=== PATIENT | female | born 1975 | race Two or more races ===

== ENCOUNTER 2025-07-20 10:59 | Outpatient (AMB) | payer OTHER, SELFPAY ==
--- NOTE | 2025-07-20 11:04 | HO.SPINEOV ---
Vital Signs 07/20/25 11:08 Height 5 ft 1 in Weight 214 lb BMI 40.4 Intake Visit Reasons: second opinion Intake Note: Ms. Caceres is here today for a second opinion on her neck issues. Certified Shorthand Reporter Required: No Allergies ibuprofen Allergy (Severe, Verified 07/20/25 11:10) Anaphylaxis Physical Exam Vital Signs: BMI result Body Mass Index 40.4 Assessment & Plan Assessment & Plan (1) Fibromyalgia: Code(s): M79.7 - Fibromyalgia Category: Medical Plan Mrs Caceres came in the office today for a 2nd opinion. She is known to your office from various injections and medication trials you done on her. She saw Dr. Luis at [place] for evaluation of multifocal pains that she has had now going on for a number of years. She describes pain in her low back that goes down her left leg that radiates up into her neck into her shoulders and both of her arms more on the left side than the right. She has had the pain now for quite some time and it does not appear to be going away. She also reports muscle aches all over her body. She gets tingling as well in multiple locations throughout the body. I believe you have done some lumbar injections on her and she reports that there was not much relief there. The injection was very painful so she is reluctant to try to consider doing more of them. She has been on gabapentin and tizanidine but it seems to be getting less helpful. She saw Dr. Luis who offered her an artificial disc at C5-6 secondary to disc bulging. She is worried about having surgery because generally she does not tolerate surgeries very well on the recoveries are always longer than normal and always more painful and never quite give her relief the way that it is described before surgery. PMH: Hypertension, prediabetes, cholecystectomy, 2 sections, carpal tunnel in the left hand Social hx: She does not smoke, drink use any recreational drugs Medications: Lisinopril, gabapentin, tizanidine Allergies: Ibuprofen gives her elevated blood pressure and gave her TIA like symptoms. Physical exam: Awake alert oriented no acute distress but very uncomfortable just trying to examine her, even tapping reflexes etc. would give her pain and discomfort in her joints. Strength is limited secondary to pain with squeezing my hands and using her limbs against resistance. Very sensitive to light touch on skin as well. Reflexes are normal, no clonus, negative Rogers's sign. Imaging review: There is lumbar MRI and cervical MRI to review. The cervical MRI shows some mild disc degeneration at C5-6 bulging more on the left but does not compress the spinal cord and there is no evidence of foraminal narrowing. No cord signal change seen. Lumbar MRI more less looks normal with good quality and height of her discs, no Modic endplate changes, fractures or herniated disc. The radiology report suggests there some foraminal stenosis but I do not appreciate any nerve compression upon my own inspection. Impression: 49-year-old female presents with multiple locations of body aches, nerve pains, tingling numbness starting from her back going down her left leg going up into her neck shoulders arms on both sides left greater than right. She saw Dr. Luis at [facility] who she tells me offered her an artificial disc for the C5-6 findings. Just listening to this patient and hearing her experiences with pain all over her body, I think she fits more with a description of a patient of fibromyalgia then somebody who has true radicular pain from nerve compression. Even attempts to examine her in the office give her pains in her joints. In fact on her imaging I do not see any nerve compression. There is just a little bit of effacement of the spinal canal in the left at C5-6 but there is no actual compression of the spinal cord that I can see. I do not see any compression at all in her low back, but despite this she complains of severe left-sided radicular pain. Every time she has had surgery, she tells me it is always a prolonged process with suboptimal results and chronic pain that develops from the surgery itself. She reports this happened not only with her gallbladder surgery with her C-sections but also even with a minor procedure like a carpal tunnel. She had to go through physical therapy afterwards and she still feels pain related to that and the symptoms never went away. I just do not think this patient is a good surgical candidate given all these factors together. I think if she has her disc replaced she will ultimately just continue to feel the same symptoms, possibly worse with neck pain related to the surgical area as she has with all her other surgeries. Thank you for allowing us to care for your patient. The total time spent with this visit with this patient was 45 minutes reviewing history, physical exam, cervical and lumbar imaging review, and implementation of treatment plan or further diagnostic testing Sang Urias MD,PhD [facility] Coding Level of Care Code New Pt Level 4 (72261) Diagnoses Fibromyalgia M79.7
[2025-07-20 11:08] VITALS: BMI 40.4
--- OUTSIDE RECORDS SUMMARY | 2025-07-20 12:35 | XMS_ITS | Clinical Summary ---
Author Organization [facility] Address [address] [place] [address] Care Team Providers Care Leather Tanner Name Role Phone Mary Grace Godwin MD Primary Care Provider Unavailab le Allergies Active Allergy Reactions Criticality Noted Date Comments Ibuprofen Bleeding (Non-Gastrointestinal) High 12/31 TIA. Medications metoPROLOL TARTRATE (LOPRESSOR) 25 MG tablet Take 1 tablet (25 mg total) by mouth. 01/11/2024 Active lisinopril (PRINIVIL,ZeSTRI L) 5 MG tablet Take 1 tablet (5 mg total) by mouth daily. 08/27/2023 Active Social History Tobacco Use Types Packs/Day Years Used Date Smoking Tobacco: Never Assessed Comments Unknown Sex and Gender Information Value Date Recorded Sex Assigned at Female 01/19/2024 8:11 AM EST Legal Sex Female 11:06 AM EST Gender Identity Female 01/19/2024 8:11 AM EST Sexual Orientation Heterosexual (straight) 01/19 8:11 AM EST Last Filed Vital Signs Vital Sign Reading Time Taken Comments Blood Pressure 176/106 01/19/2024 9:33 AM EST Pulse 71 01/19/2024 9:33 AM EST Temperature - - Respiratory Rate 18 01/19/2024 9:33 AM EST Oxygen Saturation 96% 01/19/2024 9:33 AM EST Inhaled Oxygen Concentration - - Weight - - Height - - Body Mass Index - - Plan of Treatment Health Maintenance Due Date Last Done Comments Hepatitis C Virus Screening 1977 HIV Screening 1990 DTaP/Tdap/Td Vaccines (1 - Tdap) 1996 Hepatitis B Vaccines (1 of 3 - 19+ 3-dose series) 1996 Pap Smear (Ages 21-65) 1998 Mammogram 2017 Colonoscopy 2022 COVID-19 Vaccine (2023- season) 2024 10/07/2021, 03/21/2021, 02/21/2021 Influenza Vaccine 06/30/2025 10/09/2022, , 08/03/2020, Additional history exists Pneumococcal Vaccine: Pediatric (0-5 Years) and At-Risk Patients (6 to 49 Years) Aged Out No longer eligible based on patient's age to complete this topic Insurance Care Teams Leather Tanner Relationship Specialty Start Date End Date Mary Grace Godwin MD PCP - General Internal Medicine 12/24/23
--- OUTSIDE RECORDS SUMMARY | 2025-07-20 12:35 | XMS_ITS ---
Author Name [facility] Organization Unknown History of Medication Use Medication Directions Dispensed Refills Start Date End Date Stat us iohexol (OMNIPAQUE) 350 mg/mL injection 80 mL 80 mL, Intravenous, Once in imaging, contrast, Starting on Thu01/19/24 at 0915, For 1 dose, Radiology Appointment 01/19/2024 01/19/2024 completed metoPROLOL TARTRATE (LOPRESSOR) 25 MG tablet Take 1 tablet (25 mg total) by mouth. 01/11/2024 active Allergies Allergen Reaction Severity Comment Documented Date Source Statu s IBUPROFEN BLEEDING (NON-GASTROINTESTINAL) TIA. 01/18/2024 HHCCT activ e Problems Problem Status Onset Date Problem Type Date of Resoluti on Source Other chest pain active EncounterDiagnosisAct HHCCT Encounters Encounter Type Encounter Reason Primary Diagnosis Location Date Ambulatory Other chest pain Other chest pain [facility] [place]. com[facility] cn 01/19/2024 Care Team Organization Name Specialty Phone Email [facility] 02[facility]15/2025 [place] com[facility] 01/01/2024 [facility] Jose Lei [facility] 09/29/202307/18 [facility] Mary Grace Paul [facility] 04/06/2023 024 [facility] Stefan Denise [facility] 10/07/202206/30
== END 2025-07-20 11:40 | disposition home or self-care (01) ==
LOC: HO.HNS 10:59
PROVIDERS: Visit Provider Physician Assistant
DX: M79.7 Fibromyalgia (principal)
CPT/HCPCS: 99204

== ENCOUNTER 2025-11-16 15:42 | Outpatient (AMB) | payer OTHER, SELFPAY ==
--- OUTSIDE RECORDS SUMMARY | 2024-09-09 15:25 | XMS_ITS | Encounter Summary ---
Author Organization [facility] Address [address] [place] [address] Care Team Providers Care Veneer Taping Machine Offbearer Name Role Phone Mary Grace Godwin MD Primary Care Provider Encounter Details Date Type Department Care Team (Late st Contact Info) Description 09/09/2024 4:25 PM EDT Hospital Encounter TH HISTORIC ENCOUNTERS EASTERN CONVERSION ONLY Gina Triplett MD [address] [place] [address] Social History Tobacco Use Types Packs/Day Years Used Date Smoking Tobacco: Former Cigarettes 0 Q uit: 11/30/2005 Smokeless Tobacco: Never Alcohol Use Standard Drinks/Week Comments Not Currently 2 (1 standard drink = 0.6 oz pur e alcohol) Housing Instability Answer Date Recorde d Are you worried that in the next 2 months you may not have stable housing? No 10/13/2024 Food Access & Nutrition Answer Date Rec orded Do you have access to a vari ety of food including fruits and vegetables? Yes 10/13/2024 Health Literacy Answer Date Recorded How often do you need to hav e someone help you when you read instructions, pamphlets, or other written material from your doctor or pharmacy? Never 10/13/2024 Caregiver: How often do you need to have someone help you when you read instructions, pamphlets, or other written material from your doctor or pharmacy? Not on file 10/13/2024 Transportation Answer Date Recorded Has the lack of transportati on kept you from meetings, work, or from getting things needed for daily living? No Has the lack of transportati on kept you from medical appointments or from getting medications? No 10/13/2024 Social Isolation Answer Date Recorded How often do you feel lonely or isolated from th ose around you? Never 10/13/2024 Dependent Care Answer Date Recorded Do you need help finding or paying for care for your loved ones. For example, child care leader or elderly care for an older adult? No 10/13/2024 Education Answer Date Recorded Do you think completing more education or training, like finishing a GED, going to college, or learning a trade, would be helpful for you? Yes 10/13/2024 Employment and Income Answer Date Recor ded During the last four weeks, have you been actively looking for work? No 10/13/2024 Living Situation Answer Date Recorded What is your living situation? Unrecognized valu e 10/13/2024 Comments No Sex and Gender Information Value Date Recorded Sex Assigned at Female 02/17/2025 10:41 AM EDT Legal Sex Female 9:10 AM EST Gender Identity Female 02/17/2025 10:41 AM EDT Sexual Orientation Straight 02/27/2025 9: 01 AM EDT documented as of this encounter Plan of Treatment Upcoming Encounters Date Type Department Care Team (Late st Contact Info) Description 02/26/2026 10:30 AM EDT Consult Bariatric Surgery - [address] [place] [address] Catie Wang PA [address] [place] [address] documented as of this encounter Visit Diagnoses Not on filedocumented in this encounter Care Teams Veneer Taping Machine Offbearer Relationship Specialty Start Date End Date Mary Grace Godwin MD PCP - General Internal Medicine 07/14/22 09/23/24 documented as of this encounter
[2025-11-16 15:53] VITALS: BMI 37.4
--- NOTE | 2025-11-16 15:53 | A.PHYSOV ---
Vital Signs 11/16/25 15:53 Height 5 ft 1 in Weight 198 lb BMI 37.4 Intake Visit Reasons: back pain Intake Note: Patient is a 49 year old male here for back pain. Sales Support Assistant Required: No Allergies ibuprofen Allergy (Severe, Verified 11/16/25 15:54) Anaphylaxis HPI Comments Details: History of Present Illness The patient is a 49 year old female presenting with severe back pain. She reports recent onset of severe, sharp back pains that are intense enough to take her breath away. For relief, she lies flat and has her daughter apply significant pressure to the painful area. The pain location varies, sometimes affecting her low back, mid-back, or upper back between the scapulae, with occasional radiation to the leg, although it predominantly stays in her back. Her medical history is significant for fibromyalgia, and she is currently taking duloxetine, gabapentin at night, and tizanidine. Previous injections for her back pain were not helpful. She reports she is unable to take ibuprofen due to a history of GI issues from previous overuse for migraines. The patient has also noticed a progressive loss of sensation in her feet and fingers. She recently completed a tapering course of a steroid for a hand issue, which she notes did not resolve the problem. She denies any recent heavy lifting or unusual activity. Patient would like to try a different muscle relaxer to see if that is helpful. Pain Description - Quality: Patient describes the pain as very severe and sharp. - Severity: The pain is intense enough to take her breath away. - Location: The pain location is variable, occurring in the low back, mid-back, or upper back between the shoulder blades. - Radiation: Pain occasionally radiates down the leg but mostly remains in the back. - Relieving Factors: Lying flat and applying deep, direct pressure to the painful area helps ease the pain. - Associated Symptoms: The patient experiences numbness in her feet and fingers, and reports her back pain is present at the time of the visit. [facility] Surgical History (Updated 11/10/25 @ 10:31 by Rebecca Salguero MA) Previous section History of cholecystectomy Social History (Updated 11/10/25 @ 10:31 by Rebecca Salguero MA) Alcohol intake: current Alcohol intake frequency: does not drink Patient Tobacco Use Status: Never used Tobacco Use of substances other than those prescribed or required for medical reasons: No Review of Systems Narrative Review of Systems - Musculoskeletal: Reports severe, sharp back pain that changes location. - Neurological: Reports worsening numbness and loss of feeling in her fingers and feet. - Respiratory: Reports that pain can be severe enough to cause shortness of breath. - Dermatologic: Reports a persistent issue with her hand flaring up. Physical Exam Exam Exam: Physical Exam - General: Patient observed in a standing position. - Back: Tenderness to palpation noted over the latissimus dorsi muscle in the back. No scapular winging. - Respiratory: Patient able to take a deep breath and exhale fully on command. - no rash - full range of motion bilateral upper extremities. Equal premium service representative strength bilaterally. Vital Signs: BMI result Body Mass Index 37.4 Assessment & Plan Assessment & Plan (1) Myalgia: Code(s): M79.10 - Myalgia, unspecified site Category: Medical Plan Pain Management - Analgesia: The patient is currently taking duloxetine, gabapentin, and tizanidine for fibromyalgia and neuropathic pain. - She has a history of failed pain relief from injections. - Adverse Effects: The patient cannot take ibuprofen or other NSAIDs due to a history of GI issues. - Activities of Daily Living: The patient reports she is unable to perform much lifting. - The pain requires her to lie down for relief. Plan Patient was informed and verbally consented to the use of an ambient scribe for clinic note documentation during this visit. 1. Low Back Pain The patient's [id number] back pain is poorly controlled with her current regimen of duloxetine, gabapentin, and tizanidine. An oral prednisone taper was proposed to manage inflammation, but the patient reported a recent, similar course for another issue was ineffective. Alternatives including physical therapy and topical treatments were discussed. The plan is to change her muscle relaxer. 2. Fibromyalgia The patient is on an appropriate medication regimen for fibromyalgia, including duloxetine, gabapentin, and a muscle relaxer. The plan is to continue these medications, with an agreed-upon change to the muscle relaxer to address her acute back pain. 3. Peripheral Neuropathy The patient reports worsening numbness in her hands and feet, consistent with peripheral neuropathy. She is currently taking gabapentin, which is appropriate for this condition. The plan is to continue her current medications, including gabapentin. 4. Nsaid Intolerance The patient has a history of intolerance to ibuprofen related to prior overuse for migraines. Plan is to continue avoidance of all NSAIDs. This contraindication informed the discussion to consider a prednisone steroid taper as an alternative anti-inflammatory agent. Discussion Notes I discussed the patient's severe back pain and acknowledged that her current medications for fibromyalgia, while appropriate, are not providing adequate relief. I proposed a course of oral prednisone to address potential inflammation, explaining it is different from NSAIDs, which she cannot take. We discussed her recent experience with a similar medication that was not fully effective. I presented other options, including physical therapy, topical treatments, and changing her muscle relaxer. We mutually agreed to try a new muscle relaxer at this time. Patient Instructions - A prescription for a new muscle relaxer will be sent to your pharmacy. - Continue taking your other medications as prescribed, including duloxetine and gabapentin. - Do not take any [id number] pain relievers like ibuprofen (Advil, Motrin) or naproxen (Aleve) because of your stomach issues. - Physical therapy may be helpful to strengthen your back muscles. Medications: New methocarbamol 500 mg PO TID 90 tabs 0RF 30 days M79.10 - Myalgia, unspecified site Coding Level of Care Code Tele Est Pt Level 3 (01988) Diagnoses Myalgia M79.10
--- OUTSIDE RECORDS SUMMARY | 2025-11-16 19:28 | XMS_ITS | Clinical Summary ---
Author Organization [facility] Address [address] [place] [address] Care Team Providers Care Cable Tower Operator Name Role Phone Mary Grace Godwin MD [...] 1996 Pap Smear (Ages 21-65) 1998 Mammogram 01/04/2020 01/04/2018 Colonoscopy 2022 Influenza Vaccine 06/30/2025 10/09/2022, , 08/03/2020, Additional history exists COVID-19 Vaccine (2024- season) 2025 10/07/2021, 03/21/2021, 02/21/2021 Pneumococcal Vaccine: Pediatric (0-5 Years) and At-Risk Patients (6 to 49 Years) Aged Out No longer eligible based on patient's age to complete this topic Insurance Care Teams Cable Tower Operator Relationship Specialty Start Date End Date Mary Grace Godwin MD PCP - General Internal Medicine 12/24/23
--- OUTSIDE RECORDS SUMMARY | 2025-11-16 19:28 | XMS_ITS | Clinical Summary ---
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 Active lisinopriL (PRINIVIL,ZESTR IL) 30 mg tablet Take 1 tablet (30 mg total) by mouth 1 (one) time each day. 90 tablet 1 5 Active DULoxetine (CYMBALTA) [address] capsule TAKE 1 CAPSULE BY MOUTH ONCE DAILY FOR ONE WEEK THEN INCREASE TO 2 CAPSULES DAILY IF TOLERATED IN ONE WEEK 5 Active methocarbamoL (ROBAXIN) 500 mg tabletIndicatio ns:Muscle spasm of back Take 1 tablet (500 mg total) by mouth 3 (three) times a day. Do not drive, drink and operate machinery while taking. 30 tablet 5 Active predniSONE (DELTASONE) 10 mg tablet Take 1 tablet (10 mg total) by mouth 1 (one) time each day for 10 days. Prednisone taper, days 1 through 3 40 mg po daily(4 tabs), days 4 through 6 30 mg(3 tabs) p.o. daily, day 7and 8 20 mg (2 tabs) p.o. daily, and days 9 and 10 10mg (1tab) p.o. daily 10 each 5 10/22/20 25 Active Problems Problem Noted Date Diagnosed Date Chronic bilateral low back pain with bilateral s ciatica 03/02/2025 Assessment & Plan (06/16/2025 3:50 PM EDT): We reviewed the lumbar spine MRI which showed minimal changes at L5-S1 and no significant central or foraminal stenosis. This is similar to her prior study and there is nothing there that I can target specifically as the cause of her ongoing sided back and leg pain. Previous injections have not helped and I recommended that she not pursue those further. Assessment & Plan (03/02/2025 3:57 PM EDT): Patient also describes low back pain 8-09/08 that radiates to the left >right buttocks, at times has symptoms in the left leg and can barely lift or bend it. She states she can only sit or stand for about 15-20 minutes before has to change position. She is barely sleeping, states between the muscle cramping and restless leg symptoms along with the pain that radiates from the low back up to the neck. She has tried multiple conservative treatments, ice/heat, ovnn-xqk-jgzjcyp meds without improvement. Dr. Eng has an order for updated lumbar spine MRI. We reviewed patient's prior lumbar spine MRI February 2024, healthy tall disks and minimal degenerative changes seen at that time. I asked her to let me know when the lumbar spine MRI is complete so we can review it and go over results. She has some tenderness over the SI joints as well. We talked about conservative treatment options. PT prescription given to patient, will try TENS unit. We also talked about possibly trying aquatic PT in the future or acupuncture. I am not sure if some of her symptoms could also be fibromyalgia, she was very tender throughout the extremities, anterior chest and back (versus muscle pain from low estrogen).. Right carpal tunnel syndrome 02/17/2025 Hyperlipidemia 08/29/2024 Overview (08/29/2024): Last Assessment & Plan: The patient has a history of hyperlipidemia. She is not on any lipid-lowering medication. Will order repeat lipid panel to evaluate her lipid control and determine if need to start her on any lipid-lowering therapy. PCOS (polycystic ovarian syndrome) 08/29/2024 Trigger thumb, left thumb 06/07/2024 Cervical stenosis of spinal canal 05/06/2024 Overview (08/29/2024): Last Assessment & Plan: Patient describes the right side of her neck feeling stiff, getting stuck at times where she cannot straighten it. She gets pain radiating to the right shoulder and lateral arm, numbness tingling in the first and third digits, more recently including the fifth digit. Today she is having a bad day with left-sided symptoms worse than right, pain down the left lateral shoulder and arm, hands feeling shaky and weak, tremoring. She feels like she will drop things with the left >right hands, cannot open bottles anymore. Today she almost fell, the left leg felt weak like it would buckle. There are times when she bends over the left leg will spasm or if she stretches too far the toes might cramp up. The symptoms started about 1 year ago. She has tried multiple conservative treatments like heat, Tylenol. She states there are times her midline neck feels swollen, she would rate her neck pain typically 5- 10/10. She has had PT for her hands and right foot, has not tried cervical traction. She also has history of a kidney cyst/mass that is being followed, next month goes to [facility] for follow-up imaging. Lyme's titer negative. Patient had C-spine MRI 04/12/2024 at [facility] that shows moderate central stenosis at C5-6, C6-7, no signal change in the spinal cord. She had EMG nerve conduction studies 03/29/2024 that were negative for cervical radiculopathy, carpal tunnel. I reviewed patient's C-spine MRI with her on the computer. Dr. Luis reviewed the images today as well. Ms. Valencia has neck pain, pain and numbness tingling radiating down the lateral arms into the hands, hand heat treater weakness. Dr. Luis does not feel the stenosis at C5-6, C6-7 is severe enough to be causing her current symptoms, is not recommending surgery at this time. Patient states she already was referred to [facility] neurology for the hand tremor and history of migraines, they recently called her to try to set up an appointment. We can follow-up after she sees neurology. Assessment & Plan (08/10/2025 9:41 PM EDT): Patient describes somewhat change/worsening in symptoms and that now symptoms are more bilateral, she has a lot of muscle aches and soreness, neck stiffness. In the past symptoms tended to be left arm and leg, now gets pain in both legs. She has been taking gabapentin at night, makes her sleepy so she can sleep, however she wakes up around 2 or 3 AM. She went for second opinion at [facility] neurosurgery, says they told her she has fibromyalgia and did not recommend neck surgery. They sent her back to Dr. Eng, she states he increased her duloxetine from 30 mg to 60 mg which she just started this week. She also has been having some symptoms of sleep apnea, is going for sleep study. She has not yet been able to speak with [employer] about her TENS unit. She has no history of blood clotting. Ms. Valencia has neck pain and stiffness, generalized body aching, tenderness to palpation in the left >right arm and leg. She reports she was diagnosed with fibromyalgia. At this time she plans to continue with conservative treatments, has not yet heard back from physical therapy about her insurance coverage. We will see how she does with her increased duloxetine. Some of her symptoms could also be related to perimenopause and low estrogen, she may be having some symptoms of musculoskeletal syndrome of menopause, may benefit from hormone replacement therapy. We discussed this in detail, she will discuss with her doctors to see if they would be willing to prescribe and see if it helps any of her musculoskeletal symptoms, and including waking up at 2-3 AM. I gave her an article to read regarding musculoskeletal syndrome of menopause, how estrogen is a natural anti- inflammatory. Assessment & Plan (06/16/2025 3:55 PM EDT): I discussed the cervical spine MRI in detail with Ms. Valencia and though she has bulges at multiple levels, it is only at C5-6 where there this impacts the cord at all. This is left-sided so we discussed the possibility that it explains why all of her symptoms both upper and lower extremities are worse on the left. I do not see signal change in the cord correlate with myelopathy but, she does drop things from her hand, the left fingers are numb and she has not altered sensation in the left side of her neck with coughing and sneezing. She does not specifically describe it as electricity but says she does not know what that would feel like. I am going to request that the apprenticeship representative from the [employer] reach out and help her adjust the TENS unit to see if there are changes that will help her. I encouraged her to keep her physical therapy appointments which begin in mid June then, if there are no improvements or if she feels any worsening of symptoms, I would consider offering a C5-6 discectomy with artificial disc replacement. Using a spine model, we did discuss the details, risks, benefits and anticipated postoperative course of this procedure. She is willing to consider it if needed in the future. Assessment & Plan (03/02/2025 11:42 AM EDT): Patient follows up with worsening neck and low back pain, daily headaches. She states she was not able to go for physical therapy because she had COVID and then flu then pinkeye then RSV. In terms of her neck pain, depending on what she is doing she would rate her pain 6-9/10, neck feels very stiff, tolerates minimal extension. She has fallen a few times, her left leg will give out on her even walking short distances, really does not walk even up to half a mile. She does note jumpy legs at rest. She is s/p left carpal tunnel release, upcoming right carpal tunnel release pending, but feels she drops things frequently, is right-hand dominant. She notes tenderness in the shoulders, decreased range of motion trying to reach overhead, L >R. Due to both the neck and low back pain, restless legs and muscle cramping, she does not sleep well at night, falls asleep during the day for example at the dinner table, is afraid to drive. She has tried zjzj-ijm-tnrbkuk patches, creams and gels which only helped temporarily. Uses heat and ice on the neck and low back daily. Does not think she tried a lidocaine patch. We reviewed her prior C-spine MRI 04/12/2024 at [facility], on sagittal imaging she still has space in the canal behind the spinal cord, but does have moderate central stenosis C5-6, C6-7, multilevel disc bulging. No signal change in the spinal cord. Ms. Valencia has worsening neck pain, left leg buckling and falls, dropping things. I ordered updated C-spine MRI since she had moderate stenosis in the past at a couple levels. I gave her updated prescription for PT, we had discussion regarding trying TENS unit, prescription faxed over. She tried a TENS unit in the past for her left forearm and hand, feels it was helpful. We also had discussion regarding musculoskeletal syndrome of menopause, some of her muscle aches and shoulder tendinitis could be related to low estrogen, she will talk to her POWER PRESS OPERATOR about hormone replacement therapy, article given to patient. She also could go to [email or web address] and find a provider/menopause specialist if needed. Lumbar disc herniation with radiculopathy 2023 Overview (08/29/2024): Last Assessment & Plan: Patient describes mid back radiating to the left low back, left lateral hip and leg pain. She gets numbness tingling in the foot, states the left leg feels heavy like she is carrying a brick. Symptoms started around June or July 2023, she works as a [employer], no specific inciting event but she has been living with chronic low back pain prior to this. She states the left leg pain hampers her daily activities, she misses walking like she used to for exercise. She cannot sleep on her left side, now has to sleep on the right, and is starting to notice some pain in the right lateral hip, Otherwise no radicular symptoms in the right leg. She notes at times pain in the calf with swelling, no fever. She does not recall any tick bites or rash. She was on gabapentin 300 mg at bedtime, just started trying gabapentin 600 mg as recommended by Dr. Eng, today she is feeling very sleepy, will plan to go back to 300 mg. She states she has history of TIA 2011, 2017, 2022, had 2 seizures this year, has chronic migraines, is waiting for appointment with neurology. She is not on any blood thinners. Pain is worse with bending. Patient had MRI lumbar spine 03/02/2023 at [facility] that shows L5-S1 disc bulging, central annular tear. Overall discs appear healthy, no significant stenosis, mild left L5-S1 foraminal stenosis. I reviewed the MRI images with patient on the computer. There is also mention of a right kidney cyst, she states this is already being followed. Ms. Valencia has low back, left hip and leg pain, numbness tingling in the foot, affecting her daily activities. She has done 6-week physician directed home exercises without relief. She had left hip bursa injection December 2023 without improvement, then tried left L4, L5 TFE with mild improvement for 1 to 2 days. We talked about trying aquatic physical therapy, acupuncture. We can check left LE Doppler to rule out DVT given her history, complaints of left calf pain and swelling at times. We can check lumbar flexion-extension x-rays and Lyme's titer. I asked her to call if she needs referral to neurology, if there is an issue with her current referral, she is waiting for a call from [facility] neurology. ADDENDUM: I reviewed patient's MRI lumbar spine with Dr. Luis, she does not see any nerve root compression, is not recommending any surgical intervention. Bilateral carpal tunnel syndrome 03/30/2024 Trigger thumb of both hands 03/30/2024 Chest pain 12/01/2023 Overview (08/29/2024): Last Assessment & Plan: The patient came for evaluation due to episodes of chest pain. The description of the symptoms is consistent with atypical chest pain. The patient has the following risk factors for coronary artery disease: Obesity, hypertension, hyperlipidemia, former smoker. Given the patient's age, gender, description of the symptoms, and risk factors for CAD, the patient has an increased risk for coronary artery disease. As such, will order a stress echocardiogram for evaluation of the patient's chest pain. Mitral valve prolapse 11/24/2023 Overview (08/29/2024): Last Assessment & Plan: The patient was found to have apparent prolapse of the anterior mitral valve leaflet and possibly of the posterior mitral valve leaflet on her recent echocardiogram. However, per the report, she only seems to have trace mitral valve insufficiency. I reviewed the images of the echocardiogram myself. It was a technically difficult study. I believe that she has mild mitral valve insufficiency as noted on the echocardiographic images. The patient has symptoms of atypical chest discomfort as well as exertional dyspnea. As such, we will refer the patient for a stress echocardiogram. The stress echocardiogram will allow us the opportunity to reevaluate her mitral valve insufficiency at rest and also to evaluate her mitral valve insufficiency with exertion. Gestational diabetes 08/24/2020 Essential hypertension 11/26/2018 Overview (08/29/2024): Last Assessment & Plan: The patient has a history of arterial hypertension. The patient's blood pressure today was noted to be well controlled. We'll continue the current antihypertensive medication regimen. Adhesive capsulitis of shoulder 11/16/2018 Overview (08/29/2024): Follows with [facility] Obesity (BMI 30-39.9) 05/31/2018 Complicated migraine 08/22/2013 Encounters Date Type Department Care Team Description 11/01/2025 12:45 PM EST Office Visit Walk-In Clinic - [address] [id number] Sang Diana, MALDONADO Muscle spasm of back (Primary Dx) 10/12/2025 11:00 AM EST Office Visit Orthopedic Surgery - [place] [address] [place] [address] Breanna Tyler PA Left wrist pain (Primary Dx); Acute pain of left shoulder; Paresthesias in left hand from Last 3 Months Immunizations Immunization Administration Dates Next Due Influenza Quadravalent, MDCK , 0.5ml, preservative free (Flucelvax) 6mo and older 09/04/2017 Influenza trivalent, 0.5mL, preservative free (Fluarix; FluLaval; Fluzone) ages 6mo and older (Afluria) 3 years and older 09/13/2015 Influenza trivalent, with preservative (Fluzone; Afluria) 6mo and older 10/09/2022,08/13/2021,08/03/2020,2017,08/08/2016,11/10/2014,02/10/2014,0 12/18/2011,12/05/2010,09/21/2008 PPD Test 07/21/2017,05/25/2015 Pneumococcal conjugate 13 va lent (Prevnar 13, PCV13) 2mo and older 01/21/2017 Tdap Tetanus diptheria acell ular pertussis (Boostrix; Adacel) 7yo and older 01/09/2020,08/22/2013 Surgical History Surgery Date Site/Laterality Comments OTHER SURGICAL HISTORY LAPS TX ECTOPIC PREG W/O SALPING&/OOPHORECTOMY; COMMENT: had one tube removed WISDOM TOOTH EXTRACTION SECTION 2008 and 2019 twins CHOLECYSTECTOMY Medical History Medical History Date Comments PCOS (polycystic ovarian syndrome) Hyperlipidemia Complicated migraine 08/22/2013 Obesity (BMI 30-39.9) 05/31/2018 Adhesive capsulitis of shoulder 11/16/2018 Follows with [facility] Essential hypertension 11/26/2018 Seizure (CMS/HCC V24, CMS/HCC V28) Loss of sensation Difficulty balancing Leg pain Joint pain Mitral valve prolapse 11/24/2023 Bilateral carpal tunnel syndrome 03/30/2024 Family History Medical History Relation Name Comments Diabetes Father Hyperlipidemia Father Hypertension Father Arthritis Mother Diabetes Mother Hyperlipidemia Mother Hypertension Mother Other cancer Paternal Grandmother unsure? stomach Breast cancer Neg Hx Colon cancer Neg Hx Coronary artery disease Neg Hx Ovarian cancer Neg Hx Uterine cancer Neg Hx Relation Name Status Comments Father Alive Mother Alive Paternal Grandmother Social History Tobacco Use Types Packs/Day Years Used Date Smoking Tobacco: Former Cigarettes 0 Q uit: 11/30/2005 Smokeless Tobacco: Never Tobacco Cessation:Counseling Given: Not Answered Alcohol Use Standard Drinks/Week Comments Not Currently [...] your loved ones. For example, child care worker or elderly care for an older adult? [...] Orientation Straight 02/27/2025 9: 01 AM EDT Last Filed Vital Signs Vital Sign Reading Time Taken Comments Blood Pressure 146/78 11/01/2025 12:52 PM EST Pulse 100 11/01/2025 12:52 PM EST Temperature 36.7 C (98 F) 11/01/2025 12:52 PM EST Respiratory Rate 12 07/17/2025 1:04 PM EDT Oxygen Saturation 98% 11/01/2025 12:52 PM EST Inhaled Oxygen Concentration - - Weight 97.1 kg (214 lb) 08/10/2025 1:04 PM EDT Height 154.9 cm (5' 1 ) 08/10/2025 1:04 PM EDT Body Mass Index 40.43 08/10/2025 1:04 PM EDT Plan of Treatment Upcoming Encounters Date Type Department Care Team (Late st Contact Info) Description 02/26/2026 10:30 AM EDT Consult Bariatric Surgery - [place] [address] [place] [address] Catie Wang PA [address] [place] [phone] Health Maintenance Due Date Last Done Comments Colorectal Cancer Screening: Colonoscopy 1977 Hepatitis B Vaccines (1 of 3 - 19+ 3-dose series) 1996 Breast Cancer Screening 01/04/2020 01/04/2018 HIV Screening 11/02/2022 Hepatitis C Screening 11/02/2022 Cervical Cancer Screening: Pap Smear 10/20/2024 10/20/2021 Depression Screening 11/30/2024 Hypertension/CHF/CAD Annual BMP Blood Test 09/22/2025 09/22/2024, 03/29/2024, 08/24/2020 Social Influencers of Health Screening 10/13/2025 10/13/2024 Cholesterol Screening (Lipid Panel) 09/22/2029 09/22/2024, 12/18/2023 DTaP,Tdap,and Td Vaccines (3 - Td or Tdap) 01/09/2030 01/09/2020, 08/22/2013 RSV Immunization Adult Patients (1 - 1-dose 75+ series) 2052 Pneumococcal Vaccine: Pediatrics (0 to 5 Years) and At-Risk Patients (6 to 49 Years) Aged Out 01/21/2017 No longer eligible based on patient's age to complete this topic COVID-19 Vaccine Completed 09/03/2025, 08/2022, 10/07/2021, Additional history exists Influenza Vaccine Completed 09/03/2025, , 08/13/2021, Additional history exists HIB Vaccines Aged Out No longer eligi ble based on patient's age to complete this topic HPV Vaccines Aged Out No longer eligi ble based on patient's age to complete this topic Hepatitis A Vaccines Aged Out No long er eligible based on patient's age to complete this topic IPV Vaccines Aged Out No longer eligi ble based on patient's age to complete this topic MMR Vaccines Aged Out No longer eligi ble based on patient's age to complete this topic Meningococcal ACWY Vaccine Aged Out N o longer eligible based on patient's age to complete this topic Meningococcal B Vaccine Aged Out No l onger eligible based on patient's age to complete this topic RSV Immunization Patients Under 20 months Aged Out No longer eligible based on patient's age to complete this topic Varicella Vaccines Aged Out No longer eligible based on patient's age to complete this topic Procedures Procedure Name Priority Date/Time Associated Diagnosis Comments LIPID PANEL Routine 12/18/2023 PAP SMEAR Routine 10/20/2021 ANNUAL BMP BLOOD TEST Routine 08/24/2020 SCR MAMMO BI INCL CAD Routine 01/04/2018 5:15 PM EST Encounter for screening mammogram for malignant neoplasm of breast from Last 3 Months or Most Recently Relevant to Health Maintenance Results * (ABNORMAL) Lipid panel (12/18/2023) LDL/HDL Ratio 5 0 - 44 Triglycerides 138 0 - 150 mg/dL Cholesterol 198 0 - 200 mg/dL HDL 42 >=40 mg/dL LDL Cholesterol 129(A) 0 - 100 mg/dL Blood Venous blood specimen / Unknown Historical Provider LAB BLOOD ORDERABLES Jeniffer l Result * Pap Smear (10/20/2021) Pap smear No interpreta tion,abstr acted Historical Provider HEALTH MAINTENANCE Final Result * Annual BMP Blood Test (08/24/2020) Annual BMP Blood Test Abstracted Historical Provider HEALTH MAINTENANCE Final Result * SCR MAMMO BI INCL CAD (01/04/2018 5:15 PM EST) Anatomical Region Laterality Modality Radiographic Rebekah ging 12/28/2017 11:5 9 AM EST Narrative 01/05/2018 5:07 PM EST This is a summary report. The complete report is available in the patient's medical record. If you cannot access the medical record, please contact the sending organization for a detailed fax or copy. Baseline screening, full field digital mammography, reviewed with CAD. The breasts are composed of fatty and fibroglandular tissue. No suspicious mass, architectural distortion or suspicious calcifications are identified. IMPRESSION: : No mammographic evidence of malignancy. BIRADS 1-Negative; N. 5 year breast cancer risk assessment 0.5 % Lifetime breast cancer risk assessment 10.6 % Breast cancer risk category Low (<15%) Procedure Note Brent Mao MD - 01/04/2024 This is a summary report. The complete report is available in thepatient's medical record. If you cannot access the medical record, pleasecontact the sending organization for a detailed fax or copy. Baseline screening, full field digital mammography, reviewed with CAD.The breasts are composed of fatty and fibroglandular tissue. Nosuspicious mass, architectural distortion or suspicious calcifications areidentified. IMPRESSION: : No mammographic evidence of malignancy. BIRADS 1-Negative; N. 5 year breast cancer risk assessment 0.5 % Lifetime breast cancer risk assessment 10.6 % Breast cancer risk category Low (<15%) Goldie Morgan MD IMG XR PROCEDURES Final Resu lt from Last 3 Months or Most Recently Relevant to Health Maintenance Insurance [facility] Care Teams Calender Let Off Operator Relationship Specialty Start Date End Date Mary Grace Godwin MD [address] [place] [phone] PCP - General Internal Medicine 09/24/24
--- OUTSIDE RECORDS SUMMARY | 2025-11-16 19:28 | XMS_ITS | Encounter Summary ---
Author Organization [facility] Address [address] [place] [address] Care Team Providers Care Aircraft Worker Name Role Phone Mary Grace Godwin MD Primary Care Provider Unavailab le Encounter Details Date Type Department Care Team (Late st Contact Info) Description 01/19/2024 Scanned Document [address] [id number] Radiology, Scan Social History Tobacco Use Types Packs/Day Years Used Date Smoking Tobacco: Never Assessed Comments Unknown Sex and Gender Information Value Date Recorded Sex Assigned at Female 01/19/2024 8:11 AM EST Legal Sex Female 11:06 AM EST Gender Identity Female 01/19/2024 8:11 AM EST Sexual Orientation Heterosexual (straight) 01/19 8:11 AM EST documented as of this encounter Plan of Treatment Not on file documented as of this encounter Procedures Procedure Name Priority Date/Time Associated Diagnosis Comments HX OUTSIDE ORDER 01/19/2024 documented in this encounter Results * HX OUTSIDE ORDER (01/19/2024) us Scan Radiology HX AMB PROCEDURES Final Result documented in this encounter Visit Diagnoses Not on filedocumented in this encounter Care Teams Aircraft Worker Relationship Specialty Start Date End Date Mary Grace Godwin MD PCP - General Internal Medicine 12/24/23 documented as of this encounter
== END 2025-11-16 16:12 | disposition home or self-care (01) ==
LOC: HO.HPHYS 15:43
PROVIDERS: PCP Internal Medicine; Visit Provider Physician Assistant
DX: M79.10 Myalgia, unspecified site (principal)
CPT/HCPCS: 99213